=== PATIENT | female | born 1960 | race Caucasian/White ===

== ENCOUNTER 2021-01-30 07:13 | Emergency (ER) | payer BC, SELFPAY ==
--- NOTE | ~2021-01-30 | XR_ITS ---
XR shoulder LT min 2V DATE: 01/30/2021 07:53 INDICATION: Fall one day ago. Left shoulder injury, pain TECHNIQUE: 4 views COMPARISON: None FINDINGS: There is no fracture or dislocation, periosteal reaction or bone destruction. No abnormal s oft tissue calcification. IMPRESSION: Negative Reviewed, dictated and finalized at location A. IMPRESSION: Negative
--- NOTE | ~2021-01-30 | XR_ITS ---
XR elbow LT min 3V DATE: 01/30/2021 07:54 INDICATION: Fall one day ago. Pain, limited range of motion TECHNIQUE: 6 views COMPARISON: None FINDINGS: There is a linear nondisplaced fracture of the radial head with prominent elevation of ante rior and posterior fat pads consistent with associated hemarthrosis. No other fracture or dislocation. IMPRESSION: Linear nondisplaced radial head fracture with hemarthrosis Reviewed, dictated and finalized at location A.
[2021-01-30 07:28] VITALS: BP 142/78; PULSE 62; RESP 18; TEMP 36.6; O2SAT 100
[2021-01-30 08:30] VITALS: BP 128/87; PULSE 69; RESP 15; O2SAT 97
--- NOTE | 2021-01-30 09:08 | ED.UPPEXIN ---
HPI - Extremity Injury (Upper) General Chief Complaint: Extremity Injury, Upper Stated Complaint: fall, arm injury Time Seen by Provider: 01/30/21 07:29 Source: patient Mode of arrival: ambulatory Limitations: no limitations History of Present Illness HPI narrative: 61-year-old female Referral left arm injury Patient was grilling pork steaks last night and she lost balance and fell and landed on her left arm Today she still has pain mostly in the elbow, a little bit in the shoulder Nothing is grossly deformed No other injuries, did not strike her head, and the fall was unprovoked Related Data Allergies Allergy/AdvReac Type Severity Reaction Status Date / Time cephalexin Allergy Unknown Upset Verified 01/30/21 07:33 stomach Review of Systems Review of Systems: All systems reviewed & are unremarkable except as noted in HPI and below Constitutional: Constitutional: Denies fatigue, Denies headache(s) and Denies weakness ENT: Denies headache(s) Cardiovascular: Cardiovascular: Denies dyspnea Respiratory: Respiratory: Denies cough and Denies dyspnea Genitourinary: Genitourinary: Denies urinary frequency Musculoskeletal: Musculoskeletal: Denies back pain, Denies myalgias, Denies deformity, Reports arthralgias, Denies joint swelling and Denies numbness Integumentary/Breasts: Skin/Breast: Denies erythema, Denies rash and Denies wounds Neurologic: Denies dizziness, Denies syncope, Denies headache(s), Denies focal weakness, Denies numbness and Denies weakness Psychiatric: Psychiatric: Reports no additional psychiatric complaints Endocrine: Endocrine: Reports no additional endocrine complaints Hematologic/Lymphatic: Hematologic/Lymphatic: Reports no additional hematologic/lymphatic complaints, Denies easy bleeding and Denies easy bruising Allergic/Immunologic: Allergic/Immunologic: Reports no additional allergic/immunologic complaints PMF Past Medical History Medical History Anxiety Elevated serum creatinine Graves disease Hypothyroidism Mixed hyperlipidemia Postmenopausal Prediabetes Ptosis of right eyelid Surgical History Surgical History History of thyroidectomy History of tubal ligation Family History Family History Father Family history of malignant neoplasm of esophagus Social History Social History Smoking status: Never smoker Alcohol intake: current Exam Const: General: cooperative, healthy appearing, no acute distress and alert Orientation/consciousness: patient oriented x3 (alert) HENMT: Head: normal to inspection, normocephalic, atraumatic, no contusions and no hematomas Ears: external ears normal General nose exam: no epistaxis Eyes: Conjunctivae: conjunctivae normal EOM: EOMs intact bilaterally Neck: Neck: normal visual inspection, supple and no JVD Resp: Effort & Inspection: normal respiratory effort and not labored Auscultation: other (BS =) Skin: General skin exam: normal color and no rashes or lesions noted Neuro: General: patient oriented x3 (alert) and moves all extremities Speech: normal speech Extrem: Other: Left clavicle, normal Left shoulder, no tenderness, no deformity, full passive range of motion Left elbow, tender over the radial head, pain with supination and pronation, guards full extension Left wrist, no tenderness Distal vascular normal Psych: Affect: normal affect Course Course Emergency Course: Reviewed diagnosis with patient, need for sling, need for Ortho follow-up Vital Signs Vital signs: Vital Signs Temperature 36.6 C 01/30/21 07:28 Pulse Rate 62 01/30/21 07:28 Respiratory Rate 18 01/30/21 07:28 Blood Pressure 142/78 H 01/30/21 07:28 Pulse Oximetry 100 01/30/21 07:28 Temperature 36.6 C
[2021-01-30 09:24] VITALS: BP 132/87; PULSE 69; RESP 17; O2SAT 100
== END 2021-01-30 09:25 | disposition home or self-care (01) ==
PROVIDERS: Emergency Provider Emergency Medicine; PCP Internal Medicine
DX: S52.125A Nondisplaced fracture of head of left radius, initial encounter for closed fracture (principal); E05.00 Thyrotoxicosis with diffuse goiter without thyrotoxic crisis or storm; E78.2 Mixed hyperlipidemia; R73.03 Prediabetes; E89.0 Postprocedural hypothyroidism; W18.39XA Other fall on same level, initial encounter
CPT/HCPCS: 73030; 73080; 99284; A4565

== ENCOUNTER 2023-09-13 00:19 | Day surgery (SDC) | payer BC, SELFPAY ==
[2023-08-30 09:28] VITALS: BMI 37.3
[2023-09-13 07:43] VITALS: BP 140/77; PULSE 70; RESP 16; TEMP 35.8; O2SAT 100; BMI 35.4
--- NOTE | 2023-09-13 08:01 | WPDANESEPPF ---
Anes - Initial Pre Proc Eval Procedure: Operation Date: 09/13/23 09:00 Proposed Procedures p Screening Colonoscopy - Josep Red DO Date/Time: 09/13/23 08:01 Surgeon: Josep Red DO Pre Op Diagnosis: Screening for malignant neoplasm of colon Patient Data Age: 63 Gender: F Height: 1.57 m Weight: 88 kg Last Vital Signs Temp 96.5 F L 09/13/23 07:43 Pulse 70 09/13/23 07:43 Resp 16 09/13/23 07:43 BP 140/77 09/13/23 07:43 Pulse Ox 100 09/13/23 07:43 O2 Del Method Room Air 09/13/23 07:43 Allergies Allergy/AdvReac Type Severity Reaction Status Date / Time cephalexin AdvReac Intermediate Upset Verified 09/13/23 07:53 stomach Home Medications Medication Instructions Recorded Confirmed Type cholecalciferol (vitamin D3) 1,250 1,250 mcg PO WEEKLY #8 caps 07/27/23 09/13/23 Rx mcg (50,000 unit) capsule levothyroxine 125 mcg tablet 125 mcg PO DAILY #90 tabs 07/27/23 09/13/23 Rx rosuvastatin 20 mg tablet 20 mg PO DAILY #90 tabs 07/27/23 09/13/23 Rx acetaminophen 650 mg 650 mg PO Q12H PRN Pain 08/30/23 09/13/23 History tablet,extended release Patient hx anesthesia problems: none Family hx anesthesia problems: none Results Review: All pre-operative results and documents have been reviewed as part of the pre-operative evaluation. [facility] Past Medical History Medical History Anxiety Elevated serum creatinine Graves disease Hypothyroidism Mixed hyperlipidemia Postmenopausal Prediabetes Ptosis of right eyelid Surgical History Surgical History History of thyroidectomy History of tubal ligation Family History Family History Father Family history of malignant neoplasm of esophagus Mother Hypertension Diabetes mellitus Heart disease Grandparent Diabetes mellitus Social History Social History Smoking status: Never smoker Alcohol intake: current Drinks per week: 4 Alcohol use details: BEER Substance use: never Substance use type: does not use Do You Feel Safe in your Home?: Yes Lack of Transportation: No Lack of Food: Sometimes True Current Housing: I Have Housing Concerned About Future Housing: No Difficulty Paying Gas/Electric Bills: No Difficulty Paying for Meds: No Currently Unemployed: No Education: Trade/Vocational Certificate Difficulty w/ Childcare or Family Care: No Living arrangements: with family Spiritual care concerns: No Anes - Eval Final PreProcedure Day of Procedure 09/13/23 08:01 Patient weight: obese Heart: regular rate and rhythm Lungs: clear to auscultation Airway: Mallampati scale and special considerations (Small chips to upper incisors. ) Neurological: alert and oriented Last oral intake: >/= 8 hours ASA classification: II Emergent: no Anesthetic plan: proceed Anesthesia type and monitoring: general GIVS and standard monitoring Results Review: All pre-operative results and documents have been reviewed as part of the pre-operative evaluation. HTN, hyperlipidemia, hx of Graves. Informed Consent: The patient's anesthetic plan and its attendant risks and benefits were discussed with the patient/family/POA. Questions were solicited and answers provided to the satisfaction of the patient/family/POA.
[2023-09-13] MEDS: LACTATED RINGERS 1,000 ML 150 ML IV CONT (08:02)
--- NOTE | 2023-09-13 08:22 | PM.IMHP ---
H&P: HPI History of Present Illness Date/Time: 09/13/23 08:22 Chief Complaint: screening for colorectal cancer Narrative: this is a 63-year-old woman who presents for colonoscopy. Her last colonoscopy was 5 years ago. She denies any hematochezia or melena. family history is unknown. Review of Systems Review of Systems: All systems reviewed & are unremarkable except as noted in HPI and below Constitutional: Constitutional: Denies chills, Denies fever(s), Denies headache(s) and Denies weight loss Eyes: Eyes: Denies change in vision ENT: Denies dizziness, Denies headache(s), Denies neck mass and Denies throat swelling Cardiovascular: Cardiovascular: Denies chest pain, Denies lightheadedness and Denies dyspnea Respiratory: Respiratory: Denies cough, Denies dyspnea and Denies wheezing Gastrointestinal: Gastrointestinal: Denies abdominal pain, Denies change in bowel habits, Denies nausea and Denies vomiting Genitourinary: Genitourinary: Denies hematuria and Denies dysuria Musculoskeletal: Musculoskeletal: Reports as per HPI Integumentary/Breasts: Skin/Breast: Reports as per HPI Neurologic: Denies dizziness and Denies headache(s) Allergic/Immunologic: Allergic/Immunologic: Denies throat swelling and Denies wheezing PMFSH Past Medical History Medical History Anxiety Elevated serum creatinine Graves disease Hypothyroidism Mixed hyperlipidemia Postmenopausal Prediabetes Ptosis of right eyelid Surgical History Surgical History History of thyroidectomy History of tubal ligation Family History Family History Father Family history of malignant neoplasm of esophagus Mother Hypertension Diabetes mellitus Heart disease Grandparent Diabetes mellitus Social History Social History Smoking status: Never smoker Alcohol intake: current Drinks per week: 4 Alcohol use details: BEER Substance use: never Substance use type: does not use Do You Feel Safe in your Home?: Yes Lack of Transportation: No Lack of Food: Sometimes True Current Housing: I Have Housing Concerned About Future Housing: No Difficulty Paying Gas/Electric Bills: No Difficulty Paying for Meds: No Currently Unemployed: No Education: Trade/Vocational Certificate Difficulty w/ Childcare or Family Care: No Living arrangements: with family Spiritual care concerns: No Meds Home Medications and Allergies Home Medications Medication Instructions Recorded Confirmed Type cholecalciferol (vitamin D3) 1,250 1,250 mcg PO WEEKLY #8 caps 07/27/23 09/13/23 Rx mcg (50,000 unit) capsule levothyroxine 125 mcg tablet 125 mcg PO DAILY #90 tabs 07/27/23 09/13/23 Rx rosuvastatin 20 mg tablet 20 mg PO DAILY #90 tabs 07/27/23 09/13/23 Rx acetaminophen 650 mg 650 mg PO Q12H PRN Pain 08/30/23 09/13/23 History tablet,extended release Allergies Allergy/AdvReac Type Severity Reaction Status Date / Time cephalexin AdvReac Intermediate Upset Verified 09/13/23 07:53 stomach Vital Signs Vital Signs - 24 hr 09/13/23 07:43 Temperature 35.8 C L Pulse Rate 70 Respiratory Rate 16 Blood Pressure 140/77 Pulse Oximetry 100 Oxygen Delivery Room Air Exam Const: General: no acute distress and alert Orientation/consciousness: patient oriented x3 HENMT: Head: normocephalic and atraumatic Ears: hearing grossly normal bilaterally Face/Nose/Sinus: Normal nares present Mouth: Yes Normal oral and palatal mucosa present Eyes: Periorbital: periorbital findings normal Sclera: sclerae normal EOM: EOMs intact bilaterally Neck: Neck: normal visual inspection, no lymphadenopathy and trachea midline Chest: Chest palpation & inspection: normal inspection of the chest R
[2023-09-13 09:00] VITALS: BP 112/57; PULSE 62; RESP 20; O2SAT 96
[2023-09-13 09:10] VITALS: BP 112/57; PULSE 63; RESP 17; O2SAT 100
[2023-09-13 09:20] VITALS: BP 125/78; PULSE 60; RESP 18; O2SAT 100
== END 2023-09-13 09:30 | disposition home or self-care (01) ==
PROVIDERS: PCP Internal Medicine; Visit Provider Surgery
PROC: 0DJD8ZZ Inspection of Lower Intestinal Tract, Via Natural or Artificial Opening Endoscopic (ICD-10-PCS; CPT 45378; principal; 2023-09-13 09:00)
DX: Z12.11 Encounter for screening for malignant neoplasm of colon (principal); E78.2 Mixed hyperlipidemia; E03.9 Hypothyroidism, unspecified; E05.00 Thyrotoxicosis with diffuse goiter without thyrotoxic crisis or storm; F41.9 Anxiety disorder, unspecified; E66.9 Obesity, unspecified; Z68.35 Body mass index [BMI] 35.0-35.9, adult
CPT/HCPCS: 45378; J2704; J7120

== ENCOUNTER 2024-01-15 12:14 | Outpatient (CLI) | payer BC, SELFPAY ==
--- NOTE | ~2024-01-15 | MM_ITS ---
EXAMINATION: MM screening max BI w daniel HISTORY: Screening TECHNIQUE: Craniocaudal and mediolateral oblique 3-D tomosynthesis images were obtained and synthetic 2-D images were generated. CAD analysis was submitted and interpreted. COMPARISON: Comparison to multiple prior studies sequentially, with oldest reviewed study dated 06/10. BREAST PARENCHYMAL COMPOSITION: Not dense: There are scattered areas of fibroglandular density. FINDINGS: There are developing asymmetries in the left breast. The right breast is stable without laura dence for malignancy. IMPRESSION: 1. Developing left breast asymmetries. 2. Additional mammographic views and possible breast ultrasound are recommended. BI-RADS Category 0: Incomplete: Needs additional imaging evaluation. Reviewed, dictated and finalized at location B. IMPRESSION: 1. Developing left breast asymmetries. 2. Additional mammographic views and possible breast ultrasound are recommended . BI-RADS Category 0: Incomplete: Needs additional imaging evaluation.
== END 2024-01-15 12:15 | disposition home or self-care (01) ==
LOC: MICIMG 12:14
PROVIDERS: PCP Nurse Practitioner; Visit Provider Nurse Practitioner
DX: Z12.31 Encounter for screening mammogram for malignant neoplasm of breast (principal); R92.8 Other abnormal and inconclusive findings on diagnostic imaging of breast
CPT/HCPCS: 77063; 77067

== ENCOUNTER 2024-01-31 09:29 | Outpatient (CLI) | payer BC, SELFPAY ==
--- NOTE | ~2024-01-31 | MMUS_ITS ---
EXAMINATION: MM diagnostic max LT w daniel, US breast LT limited HISTORY: Follow-up left breast asymmetry TECHNIQUE: Additional 3-D tomosynthesis images of the left breast were performed and synthetic 2-D im ages were generated. CAD analysis was submitted and interpreted. High resolution Limited left breast ultrasound was performed. COMPARISON: Comparison to multiple prior studies sequentially, with oldest reviewed study dated 06/10. BREAST PARENCHYMAL COMPOSITION: Not dense: There are scattered areas of fibroglandular density. FINDINGS: MAMMOGRAPHIC FINDINGS: There is a new focal low-density mass in the upper outer quadrant of the left breast, middle third. T here are no suspicious calcifications or architectural distortion. ULTRASOUND: Limited left breast ultrasound: At 1:00 in the subareolar location there is a 3 mm cyst. At 2:00, 6 c m from the nipple there is a 3 mm cyst, likely corresponding to the mammographic finding. No suspicio us masses to suggest malignancy. IMPRESSION: 1. No evidence for malignancy in the left breast. Benign findings. 2. Routine yearly screening mammogram and regular clinical breast examination are recommended. BI-RADS Category 2: Benign finding(s). Reviewed, dictated and finalized at location B. IMPRESSION: 1. No evidence for malignancy in the left breast. Benign findings. 2. Routine yearly screening mammogram and regular clinical breast examination a re recommended. BI-RADS Category 2: Benign finding(s).
== END 2024-01-31 09:30 | disposition home or self-care (01) ==
PROVIDERS: PCP Nurse Practitioner; Visit Provider Nurse Practitioner
DX: N64.89 Other specified disorders of breast (principal)
CPT/HCPCS: 76642; 77061; 77065; G0279

== ENCOUNTER 2024-03-10 16:25 | Outpatient (CLI) | payer BC, SELFPAY ==
--- NOTE | ~2024-03-10 | XR_ITS ---
EXAMINATION: XR hand RT min 3V DATE: 03/10/2024 16:41 INDICATION: Right hand fifth digit injury. TECHNIQUE: 3 views of right and were obtained. COMPARISON: None. FINDINGS: There is hyperflexion of fifth distal interphalangeal joint. There is an avulsion fracture of dorsal base of fifth distal phalanx with 4 mm distraction. There is mild osteoarthritis of first c arpometacarpal joint and some of the metacarpophalangeal joints and interphalangeal joints. There is moderate osteoarthritis of second-fifth proximal interphalangeal joints and second and third distal i nterphalangeal joints. IMPRESSION: 1. Avulsion fracture of dorsal base of fifth distal phalanx. Reviewed, dictated and finalized at location A. KLAYER HELPER
== END 2024-03-10 16:26 | disposition home or self-care (01) ==
LOC: MICIMG 16:26
PROVIDERS: PCP Nurse Practitioner; Visit Provider Nurse Practitioner
DX: S62.636A Displaced fracture of distal phalanx of right little finger, initial encounter for closed fracture (principal); X58.XXXA Exposure to other specified factors, initial encounter
CPT/HCPCS: 73130

== ENCOUNTER 2024-03-21 07:46 | Outpatient (CLI) | payer BC, SELFPAY ==
--- NOTE | 2024-03-21 07:54 | ECHO_ITS ---
Patient Info Name: Lula Dalton Age: 64 years : 1960 Gender: Female Ht: 62 in Wt: 205 lbs BSA: 2.06 m2 HR: 63 bpm BP: 127 / 75 mmHg Heart Rhythm: Sinus Rhythm Technical Quality: Fair Exam Date: 03/21/2024 7:56 AM Exam Location: Echo Lab Patient Status: Outpatient Admit Date: 03/21/2024 Staff Ordering Physician: Mariam Fofana NP Plant Operations Manager: Valentina Fish RDCS Attending Provider: Mariam Fofana NP Referring Physician: Ct BAIN; Exam Type: CA echo doppler color flow Study Info Indications I10 - Essential (primary) hypertension Complete two-dimensional, color flow and Doppler transthoracic echocardiogram is performed. Summary 1. Complete two-dimensional, color flow and Doppler transthoracic echocardiogram is performed. 2. Left ventricular chamber dimension is normal. 3. Left ventricular systolic function is normal, estimated at 60-65%. 4. The left ventricular diastolic function is grade I diastolic dysfunction. 5. E/e' 11 is mildly elevated. 6. Left atrial chamber dimension is mildly enlarged. 7. There is trace tricuspid valve regurgitation. 8. No pulmonary hypertension, estimated pulmonary arterial systolic pressure is 24 mmHg. Left Ventricle E/e' 11 is mildly elevated. Left ventricular chamber dimension is normal. Left ventricular systolic function is normal, estimated at 60-65%. The left ventricular diastolic function is grade I diastolic dysfunction. Right Ventricle Right ventricular systolic function is normal and with normal TAPSE 1.8 cm. Right ventricular chamber dimension is normal. Left Atria Left atrial chamber dimension is mildly enlarged. Right Atria Right atrial chamber dimension is normal. Aortic Valve The aortic valve is trileaflet. There is no aortic valve stenosis. There is no aortic valve regurgitation. Pulmonic Valve There is no pulmonic regurgitation. Mitral Valve There is no mitral valve stenosis. There is no mitral valve regurgitation. Tricuspid Valve There is trace tricuspid valve regurgitation. No pulmonary hypertension, estimated pulmonary arterial systolic pressure is 24 mmHg. Pericardium/Pleural There is no pericardial effusion. Inferior Vena Cava Normal inferior vena cava with >50% collapse upon inspiration consistent with normal right atrial pressure, 5 mmHg. Aorta The aortic root size at the sinus of Valsalva is normal. Left Ventricular Outflow Tract Name Value Normal LVOT 2D LVOT Diameter 2.0 cm LVOT Doppler LVOT Peak Gradient 3 mmHg LVOT Mean Gradient 1 mmHg LVOT VTI 21 cm LVOT VTI/AV VTI Ratio 0.9 LVOT Stroke Volume 69 ml LVOT CO 3.4 l/min LVOT CI 1.6 l/min/m2 Pulmonic Valve Name Value Normal RVOT Doppler RVOT Peak Gradient 2 mmHg PV Doppler PV Peak Gradient 4 mmHg Mitral Valve Name Value Normal MV Doppler MV Decel Cass 282 cm/s2 MV PHT 81 ms MV Area (PHT) 2.7 cm2 4.0-5.0 MV Diastolic Function MV E Peak Velocity 78 cm/s MV A Peak Velocity 92 cm/s MV E/A 0.9 MV Decel Time 279 ms MV Annular TDI MV E/e' (Septal) 11.0 <=8.0 MV E/e' (Lateral) 11.4 <=8.0 MV E/e' (Average) 11.2 Tricuspid Valve Name Value Normal TV Regurgitation Doppler TR Peak Velocity 215 cm/s TR Peak Gradient 19 mmHg Estimated PAP/RSVP RA Pressure 5 mmHg <=5 PA Systolic Pressure 24 mmHg <36 RV Systolic Pressure 24 mmHg <36 Aorta Name Value Normal Ascending Aorta Ao Root Diameter (MM) 2.8 cm Ao Root Diam Index (MM) 1.4 cm/m2 Aortic Valve Name Value Normal AV Doppler AV Peak Velocity 109 cm/s AV Peak Gradient 5 mmHg AV Mean Gradient 2 mmHg AV VTI 25 cm AV Area (Cont Eq VTI) 2.8 cm2 >=3.0 AV Area (Cont Eq Doc) 2.6 cm2 AV Regurgitation 2D LVOT Area 3.3 cm2 Ventricles Name Value Normal LV Dimensions 2D/MM IVS Diastolic Thickness (2D) 1.1 cm 0.6-1.0 LVID Diastole (2D) 5.0 cm 3.8-5.2 LVIW Diastolic Thickness (2D) 1.0 cm 0.6-0.9 LVID Systole (2D) 2.9 cm 2.2-3.5 LVOT Diameter 2.0 cm LV Mass (2D Cubed) 194.05 g 67.00-162.00 LV Mass Index (2D Cubed) 94 g/m2 43-95 Relative Wall Thickness (2D) 0.39 LV Fractional Shortening/Ejection Fraction 2D/MM LV Fractional Shortening (2D) 42 % 27-45 LV EF (2D Teicholz) 73 % 54-74 LV Diastolic Volume (4C MOD) 68 ml LV EF (4C MOD) 69 % LV Diastolic Volume (2C MOD) 68 ml LV EF (2C MOD) 61 % LV Diastolic Volume (BP MOD) 71 ml 46-106 LV Diastolic Volume Index (BP MOD) 34 ml/m2 29-61 LV Systolic Volume (BP MOD) 24 ml 14-42 LV Systolic Volume Index (BP MOD) 11 ml/m2 8-24 LV EF (BP MOD) 66 % 54-74 LV Diastolic Length (4C) 6.5 cm LV Systolic Length (4C) 5.7 cm LV Stroke Volume (4C MOD) 47 ml Atria Name Value Normal LA Dimensions LA Dimension (MM) 4.0 cm 2.7-3.8 LA Volume (4C A-L) 59 ml LA Volume (BP A-L) 56 ml RA Dimensions RA Area (4C) 14.9 cm2 <=18.0 Report Signatures
== END 2024-03-21 07:47 | disposition home or self-care (01) ==
PROVIDERS: PCP Nurse Practitioner; Visit Provider Nurse Practitioner
DX: I11.9 Hypertensive heart disease without heart failure (principal)
CPT/HCPCS: 93306

== ENCOUNTER 2024-05-30 11:22 | Outpatient (CLI) | payer BC, SELFPAY ==
--- NOTE | ~2024-05-30 | XR_ITS ---
CHEST RADIOGRAPH, PA AND LATERAL CLINICAL HISTORY: F/U x-ray . COMPARISON: 05/08/2024 TECHNIQUE: PA and lateral views of the chest. FINDINGS The cardiomediastinal silhouette is unremarkable. Platelike atelectasis within the left mid to lower lung field, unchanged. Peribronchial thickening also noted. Blunting of the left costophrenic sulcus suggesting a small left-sided pleural effusion. The remainder of the lungs are clear. IMPRESSION: Peribronchial thickening with a small left-sided pleural effusion. If clinical suspicion persists, cross-sectional imaging (noncontrast enhanced CT examination of the c hest) is suggested for further evaluation. Reviewed, dictated and finalized at location A. TER PATENT IMPRESSION: Peribronchial thickening with a small left-sided pleural effusion. If clinical suspicion persists, cross-sectional imaging (noncontrast enhanced C T examination of the chest) is suggested for further evaluation.
== END 2024-05-30 11:23 | disposition home or self-care (01) ==
LOC: GOSHIMG 11:22
PROVIDERS: PCP Nurse Practitioner; Visit Provider Clinical Nurse Specialist
DX: U07.1 COVID-19 (principal); J12.82 Pneumonia due to coronavirus disease 2019
CPT/HCPCS: 71046

== ENCOUNTER 2024-06-05 08:27 | Outpatient (CLI) | payer BC, SELFPAY ==
--- NOTE | ~2024-06-05 | CT_ITS ---
CT Scan of the Chest without Contrast: Clinical Indication: Pleural effusion Technique: Contiguous sections were acquired throughout the chest without intravenous contrast. Dose reduction technique was used on this scan by utilizing automated exposure control and iterative recon struction technique. The dose-length product (DLP) was 243.22 mGy-cm. Findings: There is no evidence of any significant mediastinal, hilar or axillary lymphadenopathy. The mediastin al soft tissues appear normal. There is no evidence of pleural or pericardial effusion. The lungs are clear. No pulmonary nodules or infiltrates are noted. Images through the upper abdomen reveal moderate hiatal hernia. Impression: No pleural effusion. Clear lungs. Moderate hiatal hernia. Reviewed, dictated and finalized at location . CINE MAN Impression: No pleural effusion. Clear lungs. Moderate hiatal hernia.
--- OUTSIDE RECORDS SUMMARY | 2024-06-05 08:35 | XMS_ITS | Patient Health Summary ---
Author Organization [facility] Address [address] [place] [address] Care Team Providers Care Editor Index Name Role Phone Unavailable Primary Care Provider Unavailabl e Note from [facility],non-owned Affiliates and Associated Physician Practices is amultiple site organization consisting of ambulatory clinics and hospital sitesin [place], [place], [place] and [place]. This disclosure is being madepursuant to the Care Everywhere program and may not contain all information available regarding this patient. Last updated 18.[facility] Social History Tobacco Use Types Packs/Day Years Used Date Smoking Tobacco: Never Assessed Sex and Gender Information Value Date Recorded Sex Assigned at Not on file Gender Identity Not on file Sexual Orientation Not on file Procedures * GROSS + MICRO EXAM(Performed 06/26/1996) Results * GROSS + MICRO EXAM (06/26/1996 1:26 PM [facility]) Result CASE NUMBER [id number] Comment: ORDERING PHYSICIAN BO LOPEZ SPECIMEN TYPE Thyroid Date 06/26/1996 Physician Alek Lopez Gross Description Received in a formalin-filled container labeled thyroid . The specimen consists of 50 gram total thyroidectomy. The right lobe measures 7.0 x 3.5 x 2.5 cm. The left lobe measures 3.5 x 5.0 x 2.8 cm. The isthmus measures 3.3 x 1.3 x 1.2 cm. The external surface of the specimen is inked in black. The external surface is purplish red and the thyroid is multinodular. The left lobe is partially fragmented. On cut section, the thyroid parenchyma is a beefy red without focal lesions. Summary of sections cassette A and B, right lobe cassette C, isthmus cassettes D and E, left lobe. PG/kn Microscopic Exam Microscopic examination of the thyroid reveals features of a diffuse hyperplastic process. The follicles are variable in size and lined by tall columnar bland follicular epithelium. In many places the follicular epithelium is thrown into papillary folds. Numerous small vessels which are congested are seen within these papillary folds as well as intervening stroma. The follicles are filled with a dense, eosinophilic colloid with a retraction change noted, but no definite evidence of scalloping. Lymphoid follicles are not seen. There is no evidence of atypia or malignancy present. Diagnosis I. Thyroid, excision A. Features consistent with Grave's disease (see microscopic description). *[place] Code 1 [id number] Patient Scheduling Manager bk Pathologist Carmen Benjamin M.D. MISCELLANEOUS SAMPLES / Unknown 06/26/1996 1:26 PM [facility] 06/26/1996 1:26 PM [facility] Historical Provider LAB - PATHOLOGY/C YTOLOGY ORDERABLES
--- OUTSIDE RECORDS SUMMARY | 2024-06-05 08:35 | XMS_ITS | Continuity of Care Document ---
Author Organization [facility] Address [address] [facility] [address] [place] [address] Phone Care Team Providers Care Echo Technologist Name Role Phone Otoniel Lara Unavailable Unavailable Procedures Procedure Date Eye Exam, New Patient Refraction Advance Directives Directive Yes / No Effective Date File Name No Information Encounters Encounter Description Practice Location Reason(s) For Visit Diagnoses Date Provider Providers Copied on Encounter [facility], [address], [place], [place], [id number], [place] tel:[phone] [facility] No Information [address]. [address] [facility] [facility] [address], [place], [address], [place]. tel:[phone] Family History Family Member Type Diagnosis Age At Onset No Information Payers Payer name Insurance type Covered alliance party ID Authoriza tion(s) No Information Social History Type Description Quantity Date Captured Comments Sex Female Smoking Status No Information Chief Complaint And Reason For Visit No Information Reason For Referral Reason For Referral No Information History Of Present Illness Encounter Date Complaint History Of Prese nt Illness No Information Functional Status Date Functional Assessmen t No Information Instructions Date Instruction Additional Infor mation No Information Assessments Type Assessment Date No Information Patient Care Teams Name Effective Dates (start - stop) Status Members No Information
--- OUTSIDE RECORDS SUMMARY | 2024-06-05 08:35 | XMS_ITS | Clinical Summary ---
Author Organization [facility] Address [address] [place] [address] Care Team Providers Care Commercial Service Technician Name Role Phone Unavailable Primary Care Provider Unavailabl e Source Comments [facility],non-owned Affiliates and Associated Physician Practices is amultiple site organization consisting of ambulatory clinics and hospital sitesin [place], [place], [place] and [place]. This disclosure is being madepursuant to the Care Everywhere program and may not contain all information available regarding this patient. Last updated 18.[facility] Social History Tobacco Use Types Packs/Day Years Used Date Smoking Tobacco: Never Assessed Sex and Gender Information Value Date Recorded Sex Assigned at Not on file Gender Identity Not on file Sexual Orientation Not on file Plan of Treatment Health Maintenance Due Date Last Done Comments COLOGUARD (AGES 45-75) - COL ON CA SCREENING 1962 COLON MONITORING 1962 COLONOSCOPY - COLON CA SCREENING 1962 CT COLONOGRAPHY - COLON CA SCREENING 1962 Colorectal Cancer Screening 1962 FIT - COLON CA SCREENING 1962 FLEX SIG - COLON CA SCREENING 1962 LIPID TESTING 1962 MAMMOGRAM 1962 PAP SMEAR 1962 HIV SCREENING 1977 HEPATITIS C SCREENING 01/17/1980 DTAP/TDAP/TD VACCINES (1 - Tdap) 1981 PNEUMOCOCCAL VACCINE 50+ (1 of 1 - PCV) 01/22/2012 ZOSTER VACCINE (1 of 2) 01/22/2012 COVID-19 VACCINE ( - 2023-2 5 season) 2023 INFLUENZA VACCINE (#1) 2023 DEPRESSION SCREENING 04/23/2024 Respiratory Syncytial Virus (RSV) Vaccine Pt: or over 60 yrs (1 - 1-dose 75+ series) 2037 HEPATITIS B VACCINE Aged Out No longe r eligible based on patient's age to complete this topic HIB VACCINE Aged Out No longer eligi ble based on patient's age to complete this topic HPV VACCINE Aged Out No longer eligi ble based on patient's age to complete this topic MENINGOCOCCAL (Group B) VACCINE Aged Out No longer eligible based on patient's age to complete this topic MENINGOCOCCAL VACCINE Aged Out No allie thelma eligible based on patient's age to complete this topic PNEUMOCOCCAL VACCINE Aged Out No long er eligible based on patient's age to complete this topic
--- OUTSIDE RECORDS SUMMARY | 2024-06-05 08:35 | XMS_ITS | Referral Summary ---
Author Organization [facility] Address [address] [place] [address] Care Team Providers Care Structural Engineer Name Role Phone Unavailable Primary Care Provider Unavailabl e Source Comments [facility],non-owned Affiliates and Associated Physician Practices is amultiple site organization consisting of ambulatory clinics and hospital sitesin [place], [place], [place] and [place]. This disclosure is being madepursuant to the Care Everywhere program and may not contain all information available regarding this patient. Last updated 18.[facility] Social History Tobacco Use Types Packs/Day Years Used Date Smoking Tobacco: Never Assessed Sex and Gender Information Value Date Recorded Sex Assigned at Not on file Gender Identity Not on file Sexual Orientation Not on file Plan of Treatment Not on file
--- OUTSIDE RECORDS SUMMARY | 2024-06-05 08:35 | XMS_ITS | Clinical Summary ---
Author Organization [facility] Address [address] [place] [phone] Phone Care Team Providers Care Executive Administrator Name Role Phone Unavailable Primary Care Provider Unavailabl e Allergies No known active allergies Encounters Date Type Department Care Team Description 05/21/2024 External Device Data [facility] ABSTRACTION Provider, Abstract 05/15/2024 External Device Data [facility] ABSTRACTION Provider, Abstract 05/06/2024 External Device Data [facility] ABSTRACTION Provider, Abstract from Last 3 Months Social History Tobacco Use Types Packs/Day Years Used Date Smoking Tobacco: Never Assessed Comments Unknown Sex and Gender Information Value Date Recorded Sex Assigned at Female 02/20/2024 10:58 AM CDT Legal Sex Female 11:56 AM CDT Gender Identity Female 02/20/2024 10:58 AM CDT Sexual Orientation Straight 02/20/2024 10 :58 AM CDT Plan of Treatment Health Maintenance Due Date Last Done Comments DTAP/TDAP/TD VACCINES (1 - Tdap) 1981 CERVICAL CANCER SCREENING 01/22/1992 BREAST CANCER SCREENING 2002 COLORECTAL SCREENING 2007 Colorectal Cancer Screening 2007 FIT-DNA Q 3 years 2007 FIT/FOBT Q 1 year 2007 Flex Sig/CT Colonography Q 5 years 2007 ZOSTER VACCINE (1 of 2) 01/22/2012 INFLUENZA VACCINE (#1) 2023 RSV VACCINE (60+ or ) (1 - 1-dose 75+ series) 2037 Insurance [facility] MEDICAID [place]
== END 2024-06-05 08:28 | disposition home or self-care (01) ==
PROVIDERS: PCP Nurse Practitioner; Visit Provider Clinical Nurse Specialist
DX: J90 Pleural effusion, not elsewhere classified (principal); R93.89 Abnormal findings on diagnostic imaging of other specified body structures; K44.9 Diaphragmatic hernia without obstruction or gangrene
CPT/HCPCS: 71250

== ENCOUNTER 2024-07-28 14:10 | Outpatient (CLI) | payer BC, SELFPAY ==
--- NOTE | ~2024-07-28 | XR_ITS ---
CHEST RADIOGRAPH, PA AND LATERAL CLINICAL HISTORY: R05.9 - Cough, unspecified . COMPARISON: 05/30/2024 TECHNIQUE: PA and lateral views of the chest. FINDINGS The cardiomediastinal silhouette is unremarkable. The lungs are clear. IMPRESSION: No focal infiltrate or effusion. Reviewed, dictated and finalized at location A.
== END 2024-07-28 14:11 | disposition home or self-care (01) ==
LOC: GOSHIMG 14:11
PROVIDERS: PCP Clinical Nurse Specialist; Visit Provider Clinical Nurse Specialist
DX: R05.9 Cough, unspecified (principal)
CPT/HCPCS: 71046